=== PATIENT | female | born 1970 | race Caucasian/White ===

== ENCOUNTER → 2017-03-15 | Outpatient (CLI) | payer OTHER ==
[2017-03-15 13:06] LABS: BASOPHIL % 0.7 %; EOSINOPHIL # 0.1 K/uL (0.0-0.5); EOSINOPHIL % 2.8 %; HEMATOCRIT 41.4 % (33.0-46.0); HEMOGLOBIN 13.7 g/dL (10.0-15.0); LYMPHOCYTE # 1.7 K/uL (0.8-4.0); LYMPHOCYTE % 39.3 %; MCH 28.7 pg (27.0-34.0); MCHC 33.1 gm/dL (32.0-36.5); MCV 86.8 fl (83.0-98.0); MONOCYTE # 0.3 K/uL (0.0-1.0); MONOCYTE % 6.2 %; MPV 10.3 fl (9.4-12.4); NEUTROPHIL # (ANC) 2.2 K/uL (1.8-7.8); NRBC % 0 /100WBC (0-0.00); PLATELET COUNT 202 K/uL (150-450); RBC 4.77 M/uL (3.50-5.50); RDW-CV 13.1 % (11.9-14.6); WBC 4.2 K/uL (4.0-11.0)
[2017-03-15 13:10] LABS: BILIRUBIN URINE NEGATIVE (NEGATIVE); BLOOD URINE NEGATIVE /UL (NEGATIVE); COLOR URINE YELLOW (YELLOW); GLUCOSE URINE NEGATIVE (NEGATIVE); KETONE URINE NEGATIVE (NEGATIVE); LEUKOCYTES URINE 500 /UL (NEGATIVE); NITRITE URINE NEGATIVE (NEGATIVE); PH URINE 6.5 (4.0-8.0); PROTEIN URINE NEGATIVE (NEGATIVE); TURBIDITY URINE CLEAR (CLEAR); UROBILINOGEN URINE NORMAL (NORMAL)
[2017-03-15 13:18] LABS: EPITHELIAL URINE 20-50 #/HPF (NEGATIVE); RBC URINE RARE #/HPF (NEGATIVE); WBC URINE 20-50 #/HPF (NEGATIVE)
[2017-03-15 13:19] LABS: BACTERIA URINE MANY (NEGATIVE)
== END | disposition disaster alternative care site (69) ==
LOC: GLAB 12:25
PROVIDERS: Orthopaedic Surgery
DX: M47.22 Other spondylosis with radiculopathy, cervical region (principal); M47.26 Other spondylosis with radiculopathy, lumbar region; M54.2 Cervicalgia; M25.78 Osteophyte, vertebrae; M54.9 Dorsalgia, unspecified